=== PATIENT | female | born 1950 | race Two or more races ===

== ENCOUNTER 2018-08-17 13:06 | Outpatient (CLI) | payer MEDICARE, OTHER ==
--- NOTE | 2018-08-18 10:13 | MRI Report ---
Reason: PAIN IN LEFT SHOULDER,OTHER ABNORMALITIES OF GAIT Procedure Date: 08/17/2018 Accession Number: [id number] / [id number] Procedure: MRI - Shoulder LT W/O CPT Code: FULL RESULT: EXAM: LEFT SHOULDER MRI WITHOUT CONTRAST EXAM DATE: 08/17/2018 03:00 PM. CLINICAL HISTORY: PAIN IN LEFT SHOULDER,OTHER ABNORMALITIES OF GAIT. COMPARISON: None. TECHNIQUE: Multiplanar, multisequence T1-weighted and fluid-sensitive sequences of the shoulder without contrast. Other: None. FINDINGS: Acromioclavicular Region: The acromion is type III, with lateral downsloping of the acromion. Mild acromioclavicular joint osteoarthritis, with small marginal osteophytes and capsular hypertrophy. The coracoacromial and coracoclavicular ligaments are intact. Moderate amount of fluid within the subacromial-subdeltoid bursa. Glenohumeral Region: Cranial subluxation of the humeral head on the glenoid is in a pattern consistent with chronic full thickness rotator cuff tendon tear. Small glenohumeral joint effusion. The articular cartilage is unremarkable. Thickening of the joint capsule at the axillary recess. Sclerae humeral ligaments are grossly intact. Bone Marrow: No fracture, marrow edema or bone lesions. Labrum: Fluid undermines the posterior superior labrum from the 12:00 to 9 o'clock position. The anterior labrum is grossly intact. Musculature/Rotator Cuff: Full thickness, full width tear of the supraspinatus tendon extending into the anterior infraspinatus, with overall tear with measuring 3 cm in anterior posterior dimension. Torn tendon fibers are retracted to the level of the supraglenoid tubercle. Mild fatty degeneration of the supraspinatus and infraspinatus muscles without atrophy. Shallow partial-thickness articular sided tear of the cranial fibers of the subscapularis tendon. Teres minor is normal. Biceps Tendon: Partial tearing of the intra-articular long head biceps tendon superimposed on moderate tendinosis. Other: The subcutaneous tissues are unremarkable. IMPRESSION: 1. Full-thickness, full width tear of the supraspinatus tendon extending into the anterior infraspinatus tendon, measuring 3 cm in anterior posterior dimension and retracted to the level of the supraglenoid tubercle. Mild fatty muscle degeneration without atrophy. 2. Tear of the posterior-superior labrum extends from the 12:00 to 9 o'clock position. 3. Type III acromion with lateral downsloping of the acromion. Mild acromioclavicular joint osteoarthritis. Moderate subacromial-subdeltoid bursitis. 4. Partial tear of the intra-articular long head biceps tendon superimposed on moderate tendinosis. 5. Thickening and capsular edema at the axillary recess may reflect adhesive capsulitis. [facility]
== END 2018-08-17 13:07 | disposition home or self-care (01) ==
LOC: DI 13:06
PROVIDERS: ATTEND Family Medicine
DX: M75.102 Unspecified rotator cuff tear or rupture of left shoulder, not specified as traumatic (principal); S43.492A Other sprain of left shoulder joint, initial encounter; M19.012 Primary osteoarthritis, left shoulder; S46.112A Strain of muscle, fascia and tendon of long head of biceps, left arm, initial encounter